=== PATIENT | male | born 1975 | race Two or more races ===

== ENCOUNTER 2017-06-14 19:23 | Emergency (ER) | payer OTHER ==
[~2017-06-14] VITALS: Ht 175.3 cm; Wt 103.1 kg
[2017-06-14 20:00] VITALS: BP 143/86
== END 2017-06-15 | disposition left against medical advice (07) ==
LOC: ER 19:23
DX: R07.89 Other chest pain (principal); Z53.21 Procedure and treatment not carried out due to patient leaving prior to being seen by health care provider
CPT/HCPCS: 93005

== ENCOUNTER 2020-10-13 14:04 | Emergency (ER) | payer OTHER ==
[~2020-10-13] VITALS: Ht 175.3 cm; Wt 90.7 kg
[~2020-10-13 14:04] MED LIST: FURO20TA3 PO; PROP10TA57 PO; SILD20TA12 PO; SPIR50TA5 PO
[2020-10-13] MEDS ORDERED: PANTOPRAZOLE 40 MG/10 ML VIAL INJ IV STA (14:12)
[2020-10-13] MEDS ORDERED: SODIUM CHLORIDE 0.9% 500 ML IVB ONE (14:15)
[2020-10-13 15:04] LABS: Basophils # (auto) 0.1 10 ^3/uL (0-0.2); Eosinophils # (auto) 0 10 ^3/uL (0-0.8); Eosinophils % (auto) 0.4 % (0.0-7.0); Lymphocytes # (auto) 0.3 10 ^3/uL (0.4-5.4); Nucleated Red Blood Cells % 0.2 %; Red Cell Distribution Width 13.3 % (11.8-14.3)
[2020-10-13 15:07] LABS: Basophils % (auto) 1.3 % (0.0-2.0); Hematocrit 47.1 % (41.0-53.0); Hemoglobin 17.3 g/dL (13.5-17.5); Lymphocytes % (auto) 6.4 % (10.0-50.0); Mean Corpuscular Hemoglobin 37.7 pg (28.0-32.0); Mean Corpuscular Volume 102.6 fL (80.0-100.0); Monocytes # (auto) 0.5 10 ^3/uL (0-1.3); Neutrophils # (auto) 4.1 10 ^3/uL (1.6-8.6); Neutrophils % (auto) 81.9 % (37.0-80.0); Red Blood Cells 4.59 10^6/uL (4.5-5.90)
[2020-10-13 15:15] LABS: Mean Corpuscular Hgb Conc. 36.4 g/dL (32.0-36.0)
[2020-10-13 15:19] LABS: Albumin 2.8 g/dL (3.4-5.0); Anion Gap 6 (5-15); Blood Urea Nitrogen 11 mg/dL (7-18); Calcium 8.6 mg/dL (8.5-10.1); Carbon Dioxide 28 mmol/L (21-32); Chloride 108 mmol/L (98-107); Glucose 84 mg/dL (74-106); Lipase 75 U/L (73-393); Potassium 3.8 mmol/L (3.5-5.1); Sodium 142 mmol/L (136-145)
[2020-10-13 15:25] LABS: Alanine Aminotransferase 99 U/L (16-61); Alkaline Phosphatase 234 U/L (45-117); Aspartate Aminotransferase 139 U/L (15-37); BUN/Creatinine Ratio 13.8; Bilirubin, Total 2.7 mg/dL (0.2-1.0); GFR African American 133 mL/min; GFR Non-African American 110 mL/min
[2020-10-13] MEDS ORDERED: LORazepam 2MG/ML-1ML VIAL ONE (15:37)
[2020-10-13] MEDS ORDERED: LORazepam 2MG/ML-1ML VIAL IV ONE (15:45)
[2020-10-13 15:55] LABS: Urine Bacteria NONE SEEN /hpf (None Seen); Urine Blood 3+ /uL (Negative); Urine Mucus FEW (None Seen); Urine Specific Gravity 1.032 (1.001-1.035); Urine WBC 6 /hpf (0 - 3)
[2020-10-14 01:59] VITALS: BP 153/96
== END 2020-10-14 02:34 | disposition short-term general hospital (02) ==
LOC: ER 14:04 → EDBD 14:04 → ER 10-14 02:34
DX: K81.0 Acute cholecystitis (principal); R19.7 Diarrhea, unspecified; I10 Essential (primary) hypertension; Z79.899 Other long term (current) drug therapy; Z88.1 Allergy status to other antibiotic agents; Z20.822 Contact with and (suspected) exposure to COVID-19
CPT/HCPCS: 36415; 74176; 76705; 80053; 81001; 83690; 84484; 85025; 85049; 87426; 93005; 96361; 96374; 96375; 99285; C9113; J2060; J7040